=== PATIENT | male | born 1980 | race Caucasian/White ===

== ENCOUNTER 2020-06-12 11:49 | Outpatient (CLI) | payer BC, SELFPAY | END 2020-06-12 11:50 | disposition home or self-care (01) | LOC: ANHCOVIDVC 11:49 | PROVIDERS: PCP Nurse Practitioner Family | DX: Z23 Encounter for immunization (principal) | CPT/HCPCS: 0001A; 91300 ==

== ENCOUNTER 2020-07-03 11:03 | Outpatient (CLI) | payer BC, SELFPAY | END 2020-07-03 11:04 | disposition home or self-care (01) | LOC: ANHCOVIDVC 11:03 | PROVIDERS: PCP Nurse Practitioner Family | DX: Z23 Encounter for immunization (principal) | CPT/HCPCS: 0002A; 91300 ==

== ENCOUNTER 2023-08-13 12:56 | Emergency (ER) | payer BC, SELFPAY ==
--- NOTE | ~2023-08-13 | XR_ITS ---
EXAMINATION: XR hand RT min 3V DATE: 08/13/2023 13:23 INDICATION: Right hand injury and pain. TECHNIQUE: 3 views of right hand were obtained. COMPARISON: None. FINDINGS: Bone alignment is normal. No fracture. There is mild osteoarthritis of first carpometacarpa l joint and first metacarpophalangeal joint. IMPRESSION: 1. Mild polyarticular osteoarthritis. Reviewed, dictated and finalized at location A.
[2023-08-13 13:07] VITALS: BP 115/76; PULSE 69; RESP 18; TEMP 36.7; O2SAT 99
--- NOTE | 2023-08-13 13:10 | ED.UPPEXIN ---
HPI - Extremity Injury (Upper) General Chief Complaint: Extremity Injury, Upper Stated Complaint: right thumb injury Time Seen by Provider: 08/13/23 13:16 Source: patient, RN notes reviewed and old records reviewed Mode of arrival: ambulatory Limitations: no limitations History of Present Illness HPI narrative: 43 year old male present to [facility] care with complaints of injury to his right hand specifically thumb and thenar area after slipping on dog bed and crashing into dog kennel last night. He states he fell asleep on the cough and he was getting up and trying to go on to bed when this occurred. Patient reports pain and decreased ability to move his right thumb, patient also has abrasions to upper right inner arm with some bruising and abrasion to his left flaherty lateral mid hand. Patient reports difficulty moving his thumb and 1st index finger due to discomfort, has applied ice to his right thumb but has not taken any OTC medication. MD complaint: injury to: right and hand (specifically are of right thumb and thenar region) Onset (ago): day(s) (last night) Handedness: right Place: home Severity scale (1-10): 7 Treatments prior to arrival: other (none) Related Data Home Medications Medication Instructions Recorded Confirmed No Home Medications 08/13/23 08/13/23 Allergies Allergy/AdvReac Type Severity Reaction Status Date / Time amoxicillin Allergy Unknown Rash Verified 08/13/23 13:26 Penicillins Allergy Unknown Rash Verified 08/13/23 13:26 Review of Systems Review of Systems: CONSTITUTIONAL: Denies fever, chills, or sweats. EYES: Denies visual changes, redness, or discharge. ENT: Denies rhinorrhea, congestion, sore throat, or otalgia. CARDIOVASCULAR: Denies chest pain, palpitations, or edema. RESPIRATORY: Denies cough or dyspnea. GASTROINTESTINAL: Denies abdominal pain, nausea, vomiting, or diarrhea. GENITOURINARY: Denies dysuria or hematuria. SKIN: Denies rash or itching. MUSCULOSKELETAL: Denies back pain, positive for pain to the right hand thumb and thenar discomfort. or myalgia. NEUROLOGIC: Denies headache, numbness, or weakness. PSYCHIATRIC: Denies anxiety or depression. All systems reviewed & are unremarkable except as noted in HPI and below PMFSH Past Medical History Medical History (Updated 08/13/23 @ 14:04 by Myriam Epstein NP) Fracture of left hand Surgical History Surgical History (Updated 08/13/23 @ 13:33 by Myriam Epstein NP) Hx of appendectomy Social History Social History (Updated 08/13/23 @ 13:34 by Myriam Epstein NP) Smoking packs per day: 0.5 Smoking cigarettes per day: 10.0 Smoking status: Current every day smoker Tobacco type: cigarettes Alcohol intake: current Living arrangements: with family Gender identity (if verbalized by the patient): Male Comments At time of signature, agree with nursing past medical, surgical, social and family history. There is no relevant family history pertinent to the presenting complaint Exam Narrative: GENERAL: Well-appearing, well-nourished, and in no acute distress. HEAD: Normocephalic, atraumatic. EYES: PERRLA and EOMI. ENT: Nares clear, no rhinorrhea or epistaxis. Mucous membranes moist. NECK: Supple. no lymphadenopathy CHEST: Clear to auscultation. No respiratory distress.SAO2 99% on room air HEART: Regular rate and rhythm. No murmur heard. Normal peripheral pulses. ABDOMEN: Soft, nontender, nondistended, normal active bowel sounds. EXTREMITIES: Normal range of motion. No edema.Exception noted to right thumb and thenar region with reports pain and decreased mobility to the thumb and index finger SKIN: Warm, dry, no rash. NEURO: No focal deficits. Alert and oriented x3. Course Course Emergency Course: Patient is aware of diagnosis, understands and agrees to treatment plan.? Anticipatory guidance given.? Patient agrees to follow-up as directed and is aware of reasons to seek care at the emergency department.
== END 2023-08-13 14:08 | disposition home or self-care (01) ==
PROVIDERS: Emergency Provider Registered Nurse
DX: M79.644 Pain in right finger(s) (principal); M18.12 Unilateral primary osteoarthritis of first carpometacarpal joint, left hand; F17.210 Nicotine dependence, cigarettes, uncomplicated
CPT/HCPCS: 73130; 99213; G0463

== ENCOUNTER 2023-08-28 15:50 | Emergency (ER) | payer BC, SELFPAY ==
--- NOTE | 2023-08-28 15:54 | ED.EXTPRO ---
HPI - Extremity Problem General Chief complaint: Extremity Problem,Nontraumatic Stated complaint: injured rt ankle Time Seen by Provider: 08/28/23 16:05 Source: patient and RN notes reviewed Mode of arrival: ambulatory Limitations: no limitations History of Present Illness HPI Narrative: 43-year-old male presents with concern for right ankle injury. Reports yesterday he was walking on a Pallet when the foot went between L of wound he rolled his ankle. He reports lateral ankle pain and pain beneath the 1st digit of the foot. He has been using crutches and ibuprofen. Denies open skin, redness, warmth. Reports swelling MD Complaint: extremity pain Related Data Home Medications Medication Instructions Recorded Confirmed No Home Medications 08/13/23 08/13/23 Allergies Allergy/AdvReac Type Severity Reaction Status Date / Time amoxicillin Allergy Unknown Rash Verified 08/13/23 13:26 Penicillins Allergy Unknown Rash Verified 08/28/23 15:58 Review of Systems Review of Systems: CONSTITUTIONAL: Denies malaise, chills, sweats, or fever. SKIN: Denies rash or itching, open skin, laceration, abrasion, redness, warmth MUSCULOSKELETAL: Reports right ankle and foot pain and swelling NEUROLOGIC: Denies numbness, weakness All systems reviewed & are unremarkable except as noted in HPI and below PMFSH Past Medical History Medical History (Updated 08/28/23 @ 16:13 by Amanda Sahu NP) Fracture of left hand Surgical History Surgical History (Updated 08/13/23 @ 13:33 by Myrima Epstein NP) Hx of appendectomy Social History Social History (Updated 08/13/23 @ 13:34 by Myriam Epstein NP) Smoking packs per day: 0.5 Smoking cigarettes per day: 10.0 Smoking status: Current every day smoker Tobacco type: cigarettes Alcohol intake: current Living arrangements: with family Gender identity (if verbalized by the patient): Male Comments At time of signature, agree with nursing past medical, surgical, social and family history. There is no relevant family history pertinent to the presenting complaint Exam Narrative: GENERAL: Well-appearing, well-nourished, and in no acute distress. HEAD: Normocephalic, atraumatic. EYES: PERRLA, conjunctivae clear NECK: Supple. CHEST: Speaks in full sentences. No respiratory distress. HEART: Regular rate and rhythm. Normal and equal peripheral pulses. EXTREMITIES: Right ankle, foot, digits have grossly normal strength and sensation, grossly normal range of motion. Moderate lateral ankle and mild distal foot edema without erythema or ecchymosis. Normal sensation with sensitivity to light touch and pain. No point tenderness. No open wounds, no skin tenting, no devitalized tissue or atrophy, no trophic changes, no obvious deformity, alignment normal, nearby joints and structures intact. Distal pulses palpable and equal bilaterally, skin warm, dry, pink. Capillary refill less than 3 seconds. SKIN: Warm, dry, no rash. NEURO: Alert and oriented x3. 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 I advised alternative treatment of rest, ice, elevation, compression and follow up with his primary care provider or return if his symptoms do not improve. Patient chooses the latter plan of care Patient is aware of diagnosis, understands and agrees to treatment plan. Anticipatory guidance given. Patient agrees to follow-up as directed and is aware of reasons to seek care at the emergency department. Portions of this record may have been created with voice recognition software Level of Care: Express Care Visit Vital Signs Vital signs: Reviewed. MDM - Extremity (Nontraumatic) MDM Narrative Medical decision making narrative: Patients injury and pain is consistent with musculoskeletal etiolog
[2023-08-28 15:58] VITALS: BP 120/75; PULSE 112; RESP 18; TEMP 36.9; O2SAT 98
== END 2023-08-28 16:18 | disposition home or self-care (01) ==
PROVIDERS: Emergency Provider Nurse Practitioner
DX: S99.912A Unspecified injury of left ankle, initial encounter (principal); X50.9XXA Other and unspecified overexertion or strenuous movements or postures, initial encounter; F17.210 Nicotine dependence, cigarettes, uncomplicated
CPT/HCPCS: 99212; G0463

== ENCOUNTER 2023-09-04 17:29 | Emergency (ER) | payer BC, SELFPAY ==
--- NOTE | ~2023-09-04 | XR_ITS ---
EXAMINATION: XR ankle RT min 3V DATE: 09/04/2023 18:07 INDICATION: Right ankle injury. TECHNIQUE: 4 views of right ankle were obtained. COMPARISON: None. FINDINGS: Bone alignment is normal. No fracture. Joint spaces are normal. There is ankle soft tissue swelling. IMPRESSION: 1. No fracture. Reviewed, dictated and finalized at location E. IMPRESSION: 1. No fracture.
--- NOTE | ~2023-09-04 | XR_ITS ---
EXAMINATION: XR foot RT min 3V DATE: 09/04/2023 18:07 INDICATION: Right foot injury. TECHNIQUE: 4 views of right foot were obtained. COMPARISON: None. FINDINGS: Bone alignment is normal. No fracture. There is moderate osteoarthritis of first metatarsop halangeal joint. There is an enthesophyte at plantar aspect of calcaneal tuberosity. IMPRESSION: 1. Moderate osteoarthritis of first metatarsophalangeal joint. Reviewed, dictated and finalized at location E.
[2023-09-04 17:40] VITALS: BP 117/82; PULSE 75; RESP 18; TEMP 37; O2SAT 99
--- NOTE | 2023-09-04 17:44 | ED.LOWEXIN ---
HPI - Extremity Injury (Lower) General Chief Complaint: Extremity Injury, Lower Stated Complaint: right ankle issue/needs xray/work note Time Seen by Provider: 09/04/23 17:31 Source: patient Mode of arrival: ambulatory Limitations: no limitations History of Present Illness HPI Narrative: Milton is a 43-year-old male patient presenting to the clinic today with complaints of right ankle injury/pain. He states that his ankle went in between 2 Pallet boards and in he inverted-rolled his ankle. Is having pain and swelling to the lateral ankle. Was seen at the [facility] on August 27 but they did not have a x-ray tech at that time so he was unable to get x-rays and he declined to be into another [facility] for imaging at that time. States that he was given a work note to return today. When he got to work today his boss told him he needed to come back to the clinic and have an x-ray done of his ankle. He reports he is having pain to the right lateral ankle and also to the great toe with some old bruising and swelling noted Related Data Home Medications Medication Instructions Recorded Confirmed No Home Medications 08/13/23 09/04/23 Allergies Allergy/AdvReac Type Severity Reaction Status Date / Time amoxicillin AdvReac Mild Rash Verified 09/04/23 17:34 Penicillins AdvReac Mild Rash Verified 09/04/23 17:34 Review of Systems Review of Systems: Pertinent positives per HPI. Patient denies any fever, chills, rash, headache, visual changes, dizziness, cough, runny nose, sore throat, shortness of breath, chest pain, palpitations, nausea, vomiting, diarrhea, constipation, abdominal pain, or any urinary issues. [facility] Past Medical History Medical History Fracture of left hand Surgical History Surgical History Hx of appendectomy Social History Social History Smoking packs per day: 0.5 Smoking cigarettes per day: 10.0 Smoking status: Current every day smoker Tobacco type: cigarettes Alcohol intake: current Living arrangements: with family Gender identity (if verbalized by the patient): Male Comments At the time of my signature, I reviewed and agree with the nursing past medical, surgical, social, and family history. There is no relevant family history pertinent to the patient complaint. Exam Narrative: General: Well-developed, well nourished, in no apparent distress Head: Normocephalic, atraumatic. Cardio: Regular rate and rhythm, s1 and s2 normal, no murmur appreciated. Resp: Clear to auscultation bilaterally, no rhonchi, rales, wheezing or rubs. Musculoskeletal: No deformity, tender to palpation over the lateral ankle with some old bruising and localized soft tissue swelling, tenderness to palpation over the right great toe, grossly normal range of motion, muscle strength strong and equal, peripheral pulse strong, no edema, no cyanosis, normal gait and station Course Course Emergency Course: Portions of this record may have been created with voice recognition software. Level of Care: Express Care Visit Vital Signs Vital signs: Vital Signs Temperature 37.0 C 09/04/23 17:40 Pulse Rate 75 09/04/23 17:40 Respiratory Rate 18 09/04/23 17:40 Blood Pressure 117/82 09/04/23 17:40 Pulse Oximetry 99 09/04/23 17:40 Oxygen Delivery Room Air 09/04/23 17:40 Temperature 37.0 C 09/04/23 17:40 Pulse Rate 75 09/04/23 17:40 Respiratory Rate 18 09/04/23 17:40 Blood Pressure 117/82 09/04/23 17:40 Pulse Oximetry 99 09/04/23 17:40 Oxygen Delivery Room Air 09/04/23 17:40 Vital signs reviewed MDM - Extremity Injury (Lower) MDM Narrative Medical decision making narrative: At the time of visit patient is resting comfortably on the exam table. Patient appears to be nontoxic. Diagno
== END 2023-09-04 18:27 | disposition home or self-care (01) ==
PROVIDERS: Emergency Provider Nurse Practitioner Family
DX: S93.401A Sprain of unspecified ligament of right ankle, initial encounter (principal); X50.9XXA Other and unspecified overexertion or strenuous movements or postures, initial encounter; Y99.0 Civilian activity done for income or pay; M19.071 Primary osteoarthritis, right ankle and foot; F17.210 Nicotine dependence, cigarettes, uncomplicated
CPT/HCPCS: 73610; 73630; 99213; G0463